=== PATIENT | female | born 1950 | race Caucasian/White ===

== ENCOUNTER 2017-05-21 10:21 | Outpatient (CLI) ==
--- NOTE | 2017-05-21 13:06 | DI ---
EXAM: RIGHT KNEE. HISTORY: Knee pain. FINDINGS: Right knee four view. Bone density appears normal. There is mild tricompartment osteoart hritis. No joint effusion or fracture is seen. IMPRESSION: Mild tricompartment osteoarthritis.
--- NOTE | 2017-05-21 13:10 | DI ---
EXAM: LEFT FOOT, 3 VIEWS HISTORY: Foot pain. There appears be moderate arthropathy at the tarsometatarsal joints and interta rsal joints medially. No acute fracture or dislocation is seen. Mild bony spurring of the posterior calcaneus. There is a plantar surface calcaneal spur. IMPRESSION: Arthropathy most apparent at the mid foot. MRI may yield additional information.
== END 2017-05-21 10:22 | disposition home or self-care (01) ==
LOC: RAD 10:21
PROVIDERS: ATTEND Internal Medicine
DX: M25.561 Pain in right knee (principal); M79.672 Pain in left foot

== ENCOUNTER 2018-03-01 10:47 | Outpatient (CLI) | payer OTHER ==
--- NOTE | 2018-03-01 11:57 | DEXA ---
EXAM: Bone densitometry. History: Postmenopausal. Findings: Evaluation of the lumbar spine reveals a total bone mineral density of 1.235 grams per centimeter squ ared with T-score of 0.5. Evaluation of the left hip reveals a total bone mineral density of 0.932 grams per centimeter squared with T-score of negative 0.6. Evaluation of the right hip reveals a total bone mineral density of 0.901 grams per centimeter square d with T-score of negative 0.8. Impression: Normal bone mineral density of the lumbar spine and left hip
--- NOTE | 2018-03-02 10:17 | MAMMO ---
EXAM: Bilateral digital screening mammogram (2-D and 3-D) History: Screening Comparison: Bilateral mammogram 02/25/2017 Findings: MLO and CC views of bilateral breasts demonstrate scattered fibroglandular breast parenchy ma. CAD was reviewed by the radiologist. Tomosynthesis was performed. Stable benign bilateral scat tered and vascular calcifications. There are no dominant masses, no suspicious microcalcifications a nd no architectural distortions Impression: Benign stable mammogram. Recommend followup routine screening mammography in 1 year. BIRADS 2
== END 2018-03-01 10:48 | disposition home or self-care (01) ==
LOC: RAD 10:47
PROVIDERS: ATTEND Internal Medicine
DX: Z12.31 Encounter for screening mammogram for malignant neoplasm of breast (principal); Z78.0 Asymptomatic menopausal state

== ENCOUNTER 2018-12-08 11:59 | Emergency (ER) | payer OTHER ==
[2018-12-08 12:06] VITALS: BP 164/74; TEMP 96.8; BMI 33.6
--- NOTE | 2018-12-08 12:13 | ED.PDOC ---
General ED Provider: Dr. BISI SANTOYO Chief Complaint: Wrist Pain/Injury Stated Complaint: Lifting heavy weight; felt wrist strain - also base of thumb is painful. Time Seen by Physician: 12:10 Mode of Arrival: Walk-In Information Source: Patient Exam Limitations: No limitations Primary Care Provider: MAHSA VICTOR Nursing and Triage Documentation Reviewed and Agree: Yes Does patient meet sepsis criteria?: No System Inflammatory Response Syndrome: Not Applicable Sepsis Protocol: For patient's 13 years and over: Temp is 96.8 and below OR 101 and greater Pulse >90 BPM Resp >20/minute Acutely Altered Mental Status Are patient's symptoms suggestive of a new infection, such as: -Pneumonia -Skin, Soft Tissue -Endocarditis -UTI -Bone, Joint Infection -Implantable Device -Acute Abdominal Infection -Wound Infection -Meningitis -Blood Stream Catheter Infection -Unknown Review of Systems - Review Of Systems Constitutional: Reports: No symptoms Ears, Nose, Mouth, Throat: Reports: No symptoms Respiratory: Reports: No symptoms Musculoskeletal: Reports: Joint pain (Right wrist and hand) Skin: Reports: No symptoms All Other Systems: Reviewed and Negative Past Medical History - Past Medical History Endocrine: Reports: DM 2, Dyslipidemia Cardiovascular: Reports: Hypertension Respiratory: Reports: COPD, Bronchitis Hematological: Reports: None Gastrointestinal: Reports: None Genitourinary: Reports: CKD Neuro/Psych: Reports: None Musculoskeletal: Reports: Arthritis Cancer: Reports: Unknown Last Menstrual Period: n/a - Surgical History General Surgical History: Reports: Unknown - Family History Family History: Reports: Unknown - Social History Smoking Status: Never smoker Hx Substance Use: No Alcohol Screening: Occasionally Physical Exam - Physical Exam Appearance: Well-appearing Ill-appearing: None Pain Distress: Mild (R wrist/hand) Respiratory: Airway patent, Breath sounds clear Cardiovascular: RRR, Pulses normal Skin: Warm, Dry, Normal color Psychiatric: Affect appropriate, Mood appropriate Interpretation - Radiology Interpretation Radiology Interpretation By: Radiologist Radiology Results: No acute changes Exam Interpreted: Other (Right wrist and hand) Critical Care Note - Critical Care Note Total Time (mins): 10 Course - Course Orders, Labs, Meds: Orders Category Date Time Status LOS [ED LOS WRAP] .ONCE EMERGENCY 12/08/18 13:33 Active HAND, RIGHT 3 VIEWS Stat RADS 12/08/18 12:13 Completed WRIST, RIGHT 3 VIEWS Stat RADS 12/08/18 12:14 Completed Vital Signs: Temp Pulse Resp BP Pulse Ox 12/08/18 12:02 96.8 F L 58 L 16 164/74 H 95 Departure - Departure Time of Disposition: 15:10 Disposition: HOME SELF-CARE Discharge Problem: Pain in right wrist Instructions: Arthralgia (ED) Condition: Good Pt referred to PMD for follow-up: Yes (Follow up with primary care - call for appointment) IPMP verified?: No Additional Instructions: Use LOS wrap and sling for comfort/rest of the Right hand and wrist. Follow up with primary care. Allergies/Adverse Reactions: Allergies propoxyphene HCl [From Darvon] Allergy (Mild, Verified 12/08/18 12:06) Dizziness Home Medications: Ambulatory Orders Roscoe-3 Fatty Acids/Fish Oil [Roscoe 3 1,000 Mg Softgel] 1 each PO TID 09/27/13 Esomeprazole Magnesium [Nexium] 20 mg PO DAILY 10/06/13 Diclofenac Sodium 75 mg PO DAILY 12/08/18 Pravastatin Sodium [Pravachol] 40 mg PO DAILY 12/08/18 Disposition Discussed With: Patient
--- NOTE | 2018-12-08 13:05 | DI ---
EXAM: Right wrist three-view HISTORY: Pain with movement COMPARISON: None FINDINGS: No fracture or dislocation. Moderate degenerative change at the STT articulation. No foc al soft tissue abnormality. IMPERSSION: 1. No fracture or dislocation. 2. Degenerative changes as described
--- NOTE | 2018-12-08 13:06 | DI ---
EXAM: Right hand three-view HISTORY: Right hand pain COMPARISON: None FINDINGS: No fracture or dislocation. Mild scattered osteophytic change of the hand. Moderate dege nerative changes STT articulation. No focal soft tissue abnormality. IMPERSSION: 1. No fracture or dislocation. 2. Degenerative changes
== END 2018-12-08 14:14 | disposition home or self-care (01) ==
LOC: ED 11:59
DX: M25.531 Pain in right wrist (principal); X50.0XXA Overexertion from strenuous movement or load, initial encounter
CPT/HCPCS: 99282